=== PATIENT | female | born 1975 | race Caucasian/White ===

== ENCOUNTER 2016-04-26 13:37 | Emergency (ER) | payer MEDICAID ==
[~2016-04-26] VITALS: Ht 157.5 cm; Wt 84.0 kg
[~2016-04-26 13:37] MED LIST: ACET325T33 PO; NITR-58 PO
[2016-04-26 13:40] VITALS: Ht 157.5 cm; Wt 84.0 kg
[2016-04-26] MEDS ORDERED: SOD CHLORIDE 0.9% 1,000 ML IV ONE (16:00)
[2016-04-26 16:02] LABS: URINE BLOOD (Dip) POC Trace-intact (NEGATIVE)
[2016-04-26] MEDS ORDERED: SOD CHLORIDE 0.9% 100 ML ONE (16:13)
[2016-04-26] MEDS ORDERED: IOHEXOL 300MG/ML 150 ML BTL ONE (16:13)
[2016-04-26 16:15] LABS: ADD SCAN DIFF NO
[2016-04-26 16:20] LABS: BASOPHILS % 0.6 % (0.0-2.0); EOSINOPHILS # 0.1 10^3/ul (0.0-0.5); EOSINOPHILS % 1.3 % (0.0-7.0); HEMATOCRIT 41.3 % (37.0-47.0); HEMOGLOBIN 13.5 g/dl (12.0-16.0); LYMPHOCYTES # 1.7 10^3/ul (0.8-2.9); LYMPHOCYTES % 24.8 % (15.0-51.0); MEAN CORPUSCULAR HEMOGLOBIN 29.9 pg (29.0-33.0); MEAN CORPUSCULAR HGB CONC 32.7 g/dl (32.0-37.0); MEAN CORPUSCULAR VOLUME 91.4 fl (82.0-101.0); MEAN PLATELET VOLUME 10.1 fl (7.4-10.4); MONOCYTE # 0.4 10^3/ul (0.3-0.9); MONOCYTES % 6.5 % (0.0-11.0); NEUTROPHIL # 4.5 10^3/ul (1.6-7.5); NEUTROPHILS % 66.4 % (39.0-77.0); PLATELET COUNT 298 10^3/UL (140-415); RED BLOOD COUNT 4.52 10^6/ul (4.20-5.40); RED CELL DISTRIBUTION WIDTH 12.6 % (11.5-14.5); WHITE BLOOD COUNT 6.8 10^3/ul (4.8-10.8)
--- NOTE | 2016-04-26 16:28 | ERD ---
ER Documentation Chief Complaint Date/Time DATE: 04/26/16 TIME: 16:24 Chief Complaint l side swelling of lymph node for 2 weeks, pmd gave antibiotics "no results HPI This is a 40-year-old female who presents to the emergency department today complaining of a swollen lymph node on the side of her face for the past 2 weeks. Patient states that her doctor gave her antibiotics but there has been no improvement. States that she has lost her smell. States that she took Augmentin for 4 days and then stopped and was told to take azithromycin. States she has also had a cough, denies any sore throat, earache. ROS All systems reviewed and are negative except as per history of present illness. Medications Home Meds Active Scripts Naproxen* (Naprosyn*) 500 Mg Tablet, 500 MG PO BID Y for PAIN AND/OR INFLAMMATION, #30 TAB Prov:ANTHONY MENDEZ PA-C 04/26/16 Hydrocodone/Acetaminophen ([place] 5-325 Tablet) 1 Each Tablet, 1 TAB PO Q6H Y for PAIN, #12 TAB Prov:ANTHONY MENDEZ PA-C 04/26/16 Clindamycin Hcl* (Clindamycin Hcl*) 300 Mg Capsule, 300 MG PO QID for 7 Days, CAP Prov:ANTHONY MENDEZ PA-C 04/26/16 Acetaminophen* (Tylenol*) 325 Mg Tablet, 2 TAB PO Q8 Y for PAIN AND OR ELEVATED TEMP, #20 TAB Prov:TOO MCNAMARA PA-C 08/26/15 Acetaminophen* (Tylenol*) 325 Mg Tablet, 1 TAB PO Q6 Y for PAIN AND OR ELEVATED TEMP, #20 TAB Prov:SHIRLEY CHOI PA-C 08/24/15 Nitrofurantoin Monohyd Macrocr* (Macrobid*) 100 Mg Capsr, 100 MG PO BID for 7 Days, CAP Prov:SENAIT PATIÑO PA-C 04/28/15 Allergies Allergies: Coded Allergies: No Known Allergy (Unverified , 04/26/16) PMhx/Soc History of Surgery: No Anesthesia Reaction: No Hx Neurological Disorder: No Hx Respiratory Disorders: No Hx Cardiac Disorders: No Hx Psychiatric Problems: No Hx Miscellaneous Medical Probl: No Hx Alcohol Use: No Hx Substance Use: No Hx Tobacco Use: No Smoking Status: Never smoker Physical Exam Vitals Vital Signs Date Time Temp Pulse Resp B/P Pulse Ox O2 Delivery O2 Flow Rate FiO2 04/26/16 19:15 98.2 74 22 135/66 100 Room Air 04/26/16 13:40 98.8 77 18 136/63 98 Physical Exam Const: No acute distress HEAD left side facial swelling with firmness. No erythema or warmth. No evidence of cellulitis. Eyes: Normal Conjunctiva ENT: Ears TMs normal. Nose no drainage. Throat no erythema no exudate. Neck: Full range of motion..~ No meningismus. Resp: Clear to auscultation bilaterally Cardio: Regular rate and rhythm, no murmurs Abd: Soft, non tender, non distended. Normal bowel sounds Skin: No petechiae or rashes Neur: Awake and alert Psych: Normal Mood and Affect Result Diagram: 04/26/16 1600 04/26/16 1600 Results 24 hrs Laboratory Tests Test 04/26/16 16:00 04/26/16 16:04 Alanine Aminotransferase (ALT/SGPT) 25IU/L Albumin 4.1g/dl Albumin/Globulin Ratio 0.97 Alkaline Phosphatase 123IU/L Amylase Level 152U/L Anion Gap 16 Aspartate Amino Transf (AST/SGOT) 22IU/L Basophils # 0.010^3/ul Basophils % 0.6% Blood Urea Nitrogen 12mg/dl Calcium Level 9.3mg/dl Carbon Dioxide Level 28mmol/L Chloride Level 104mmol/L Creatinine 0.62mg/dl Direct Bilirubin 0.00mg/dl Eosinophils # 0.110^3/ul Eosinophils % 1.3% Globulin 4.20g/dl Glucose Level 83mg/dl Hematocrit 41.3% Hemoglobin 13.5g/dl Indirect Bilirubin 0.1mg/dl Lymphocytes # 1.710^3/ul Lymphocytes % 24.8% Mean Corpuscular Hemoglobin 29.9pg Mean Corpuscular Hemoglobin Concent 32.7g/dl Mean Corpuscular Volume 91.4fl Mean Platelet Volume 10.1fl Monocytes # 0.410^3/ul Monocytes % 6.5% Neutrophils # 4.510^3/ul Neutrophils % 66.4% Nucleated Red Blood Cells # 0.010^3/ul Nucleated Red Blood Cells % 0.0/100WBC Platelet Count 18682^3/UL Potassium Level 3.6mmol/L Red Blood Count 4.5210^6/ul Red Cell Distribution Width 12.6% Sodium Level 144mmol/L Total Bilirubin 0.1mg/dl Total Protein 8.3g/dl White Blood Count 6.810^3/ul Bedside Urine Blood Trace-intact Bedside Urine Glucose (UA) Negative Bedside Urine Ketones (LAB) Negative Bedside Urine Leukocyte Esterase (L Trace Bedside Urine Nitrite (LAB) Negative Bedside Urine Protein (LAB) Negative Bedside Urine pH (LAB) 5.5 Current Medications Medications (Trade) Dose Ordered Sig/Zafar Route PRN Reason Start Time Stop Time Status Last Admin Dose Admin Sodium Chloride (NS) 1,000 ml @ 1,000 mls/hr Q1H ONCE IV 04/26/16 16:00 04/26/16 16:59 DC 04/26/16 15:53 IV Flush 10 ml 10 ml STK-MED ONCE .ROUTE 04/26/16 16:13 04/26/16 16:14 DC Sodium Chloride (NS) 100 ml @ ud STK-MED ONCE .ROUTE 04/26/16 16:13 04/26/16 16:14 DC Iohexol (Omnipaque 300mg/ ml) 150 ml STK-MED ONCE .ROUTE 04/26/16 16:13 04/26/16 16:14 DC Acetaminophen/ Hydrocodone Bitart ([place] (5/325)) 1 tab ONCE ONCE PO 04/26/16 16:30 04/26/16 16:31 DC 04/26/16 16:35 DIAGNOSTIC IMAGING REPORT Patient: SELVIN ROGER : 1975 Age: 40 Sex: F MR #: [id number] DOS: 04/26/16 0000 Ordering MD: ANTHONY MENDEZ PA-C Location: [facility] Room/Bed: PROCEDURE: CT maxillofacial with contrast. CLINICAL INDICATION: Facial swelling and left ear pain. TECHNIQUE: Multiphase CT scan of the face was performed in the axial plane. Coronal and sagittal re-formations were performed. 80 cc of Omnipaque-300 was administered intravenously without immediate complications. The CTDI measures 53.85 mGy. The calculated radiation dose measures 1127.48 mGy cm. One or more of the following dose reduction techniques were used: Automated exposure control. Adjustment of the mA and/or kV according to patient size. Use of iterative reconstruction technique. COMPARISON: None FINDINGS: There is asymmetric enlargement of the left parotid gland. There is peripherally enhancing centrally cystic / necrotic lesion in the deep lobe of the left parotid gland measuring 2 x 1 x 1.5 cm (transverse x ap x craniocaudal ). There is no significant para glandular inflammatory changes. There is moderate caudal thickening in the right maxillary sinus. Remainder of the paranasal sinuses are clear. Mastoid air cells and middle ear cavities are clear. Multiple punctate calcifications are seen in the right parotid gland. The mandible is identified demonstrating no evidence of fracture or bony dysplasia. The mid face and bony orbits demonstrate no evidence of acute fracture. Evaluation of the orbits demonstrates the globes to be normal in their size, shape, and attenuation bilaterally. No definite intra or extraconal soft tissue masses are seen. The optic nerve and nerve sheath complexes bilaterally appear unremarkable. IMPRESSION: 1. Asymmetric enlargement of the left parotid gland with no significant surrounding inflammatory changes. 2. Approximately 2 x 1 x 1.5 cm peripherally enhancing centrally cystic / necrotic bilobed mass in the deep lobe of the left parotid gland. The differential includes both benign and malignant parotid masses as well as parotid abscess. Recommend ENT consultation. No CT evidence of perineural spread. 3. No abnormally enlarged lymph node in the neck. 4. Multiple punctate calcifications in the right parotid gland. RPTAT: EE .Misa Cevallos MD, MD Date Time Electronically viewed and signed by .Misa Cevallos MD, MD on 04/26/2016 17:30 .O/ CC: ANTHONY MENDEZ PA-C/[facility] This a 40-year-old female who presents to the emergency department today complaining of left-sided facial swelling for the past 2 weeks. Patient had originally been on Augmentin for 4 days and azithromycin to treat some unknown infection. On physical exam patient had left-sided facial swelling with firmness and therefore I did obtain laboratory work as well as a CT facial bone with contrast per Laboratory work shows no elevated white blood cell count. She is not anemic. Platelets are within normal limits. Electrolytes are within normal limits. Glucose within normal limits. Liver function is within normal limits. Amylase is elevated. UA shows trace leukocyte esterase. Urine test is negative. CT facial bone shows asymmetric enlargement of the left parotid gland with no significant surrounding inflammatory changes. There is an approximately 2 x 1 x 1.5 cm peripherally enhancing central cystic necrotic bilobed mass in the deep lobe of the left parotid gland. Differential includes both benign and malignant parotid masses as well as parotid abscess. Recommended ENT consultation. There is no CT evidence of Neural spread. No abnormally enlarged lymph node in the neck. There are multiple punctate calcifications in the right parotid gland. Mandible shows no fracture or bony dysplasia. Face and bony orbits demonstrate no evidence of acute fracture. There is no evidence of mastoiditis. I placed a call to the ENT masonry installer, Dr. Martinez and he indicated that given that the patient has no fever and no elevated white blood cell count that the patient likely does not have an abscess and this is more of a mass. He did not feel the patient required admission or IV antibiotics. He felt that the patient could be seen by an ENT on an outpatient basis. I have explained this to the patient. I have instructed her to go back to her clinic that gave her her original prescription and asked for referral to ENT specialist. I have also given her a list of names of referrals. I will place the patient on clindamycin as well as give her a prescription for [place] and Naprosyn for home. Patient is afebrile and otherwise well-appearing. Her symptoms at this time is consistent with parotid mass versus parotitis versus parotid abscess. Patient was given [place] and IV fluids here in the emergency department and patient's pain improved. At this time the patient is stable for discharge and outpatient management. Patient should follow up with their PCP in the next 1-2 days. They may return to the emergency department sooner for any persistent or worsening of symptoms. Patient understood and agreed with the plan. Discussed the patient with Dr. Hector and he is in agreement with the plan Departure Diagnosis: Primary Impression: Enlarged parotid gland Condition: ANTHONY Naik PA-C Apr 26, 2016 16:28
[2016-04-26 16:29] LABS: ALBUMIN 4.1 g/dl (3.3-4.9); POTASSIUM 3.6 mmol/L (3.5-5.1)
[2016-04-26] MEDS ORDERED: HYDROCODONE/APAP (5/325) TAB PO ONE (16:30)
[2016-04-26 16:31] LABS: CREATININE 0.62 mg/dl (0.44-1.00)
[2016-04-26 16:32] LABS: ALBUMIN/GLOBULIN RATIO 0.97; BILIRUBIN,INDIRECT 0.1 mg/dl (0-1.1); BILIRUBIN,TOTAL 0.1 mg/dl (0.2-1.3); CALCIUM 9.3 mg/dl (8.4-10.2); TOTAL PROTEIN 8.3 g/dl (6.1-8.1)
--- NOTE | 2016-04-26 17:31 | RADRPT ---
PROCEDURE: CT maxillofacial with contrast. CLINICAL INDICATION: Facial swelling and left ear pain. TECHNIQUE: Multiphase CT scan of the face was performed in the axial plane. Coronal and sagittal re-formations were performed. 80 cc of Omnipaque-300 was administered intravenously without immediat e complications. The CTDI measures 53.85 mGy. The calculated radiation dose measures 1127.48 mGy cm. One or more of the following dose reduction techniques were used: Automated exposure control. Adjustment of the mA and/or kV according to patient size. Use of iterative reconstruction technique. COMPARISON: None FINDINGS: There is asymmetric enlargement of the left parotid gland. There is peripherally enhancing centrall y cystic / necrotic lesion in the deep lobe of the left parotid gland measuring 2 x 1 x 1.5 cm (sebastian sverse x ap x craniocaudal ). There is no significant para glandular inflammatory changes. There i s moderate caudal thickening in the right maxillary sinus. Remainder of the paranasal sinuses are c lear. Mastoid air cells and middle ear cavities are clear. Multiple punctate calcifications are seen in the right parotid gland. The mandible is identified de monstrating no evidence of fracture or bony dysplasia. The mid face and bony orbits demonstrate no evidence of acute fracture. Evaluation of the orbits de monstrates the globes to be normal in their size, shape, and attenuation bilaterally. No definite i ntra or extraconal soft tissue masses are seen. The optic nerve and nerve sheath complexes bilatera lly appear unremarkable. IMPRESSION: 1. Asymmetric enlargement of the left parotid gland with no significant surrounding inflammatory ch anges. 2. Approximately 2 x 1 x 1.5 cm peripherally enhancing centrally cystic / necrotic bilobed mass in the deep lobe of the left parotid gland. The differential includes both benign and malignant parotid masses as well as parotid abscess. Recommend ENT consultation. No CT evidence of perineural sprea d. 3. No abnormally enlarged lymph node in the neck. 4. Multiple punctate calcifications in the right parotid gland. RPTAT: EE .Misa Cevallos MD, Date Time Electronically viewed and signed by .Misa Cevallos MD, on 04/26/2016 17:30 .O/
[2016-04-26] MEDS ORDERED: HYDR-906 PO (19:06)
[2016-04-26] MEDS ORDERED: CLIN-73 PO (19:06)
[2016-04-26] MEDS ORDERED: NAPR-260 PO (19:06)
[2016-04-26 19:15] VITALS: BP 135/66; PULSE 74; RESP 22; TEMP 98.2
== END 2016-04-26 19:20 | disposition home or self-care (01) ==
LOC: FTE 13:37
DX: K11.1 Hypertrophy of salivary gland (principal)
CPT/HCPCS: 70486; 80053; 81003; 82150; 85025; 96360; 96361; J7030; Q9967; Z7502; Z7610